=== PATIENT | male | born 1950 | race Caucasian/White ===

== ENCOUNTER 2021-04-23 19:24 | Emergency (ER) | payer BC, MEDICARE, SELFPAY ==
[2021-04-23] MEDS ORDERED: Lidocaine 1% PF 5 ML VIAL ONE (21:33)
[2021-04-23] MEDS ORDERED: Bupivacaine 0.5% 10 ML VIAL ONE ×2 (21:36→21:49)
[2021-04-23] MEDS ORDERED: CEFAZOLIN 1 GM VIAL ONE (21:49)
== END 2021-04-24 00:14 | disposition short-term general hospital (02) ==
LOC: ERS 19:24
DX: S62.522B Displaced fracture of distal phalanx of left thumb, initial encounter for open fracture (principal); Z23 Encounter for immunization; W31.2XXA Contact with powered woodworking and forming machines, initial encounter
CPT/HCPCS: 64450; 90471; 96374; J0690; J3490